=== PATIENT | female | born 1985 | race Two or more races ===

== ENCOUNTER 2023-03-14 13:05 | Emergency (ER) | payer OTHER ==
[~2023-03-14] VITALS: Ht 160 cm; Wt 87.5 kg
[2023-03-14] MEDS ORDERED: PRENA1 TRUE CO1 EACH (13:09)
[2023-03-14 15:11] LABS: HEMATOCRIT 44.9 % (36.0-45.00); HEMOGLOBIN 15.4 g/dL (12.0-15.00); MEAN CELL VOLUME 90.2 fL (80.00-100.00); MEAN CORPUSCULAR HGB CONC 34.4 g/dl (32.0-36.0); PLATELET COUNT 245 K/uL (150-450); RED BLOOD COUNT 4.97 M/uL (4.00-6.00); RED CELL DISTRIBUTION WIDTH 12.9 % (11.5-14.5)
[2023-03-14 15:29] LABS: URINE APPEARANCE Turbid; URINE BILIRRUBIN Negative (NEGATIVE); URINE BLOOD Negative; URINE COLOR Dark Yellow; URINE GLUCOSE Negative (NEGATIVE); URINE LEUKOCYTE Small; URINE NITRATE Negative; URINE PROTEIN Trace (NEGATIVE)
[2023-03-14 15:32] LABS: URINE EPITHELIAL CELLS 76.6 uL (0.0-38.8); URINE RBC 17.5 uL (0.0-20.8); URINE WBC 21.6 uL (0.0-23.2)
[2023-03-14 15:38] LABS: URINE BACTERIA > 9821.5 uL (0.0-1933)
[2023-03-14 15:53] LABS: CREATININE SERUM 0.63 mg/dL (0.55-1.02); GFR 106.33; POTASSIUM 3.49 mEq/L (3.5-5.1)
[2023-03-14] MEDS ORDERED: PEPCID AC20 MG PO (17:24)
[2023-03-14] MEDS ORDERED: INTESTINEX680 M1 PO (17:24)
[2023-03-14] MEDS ORDERED: ONDANSETRON HCL4 MG PO (17:24)
[2023-03-14] MEDS ORDERED: DUI500 PO (17:29)
== END 2023-03-14 17:59 ==
LOC: ER 13:05
PROVIDERS: Nurse Practitioner Family
DX: K52.9 Noninfective gastroenteritis and colitis, unspecified (principal); R11.10 Vomiting, unspecified; Z88.6 Allergy status to analgesic agent; Z91.040 Latex allergy status

== ENCOUNTER 2023-03-21 08:53 | Emergency (ER) | payer OTHER ==
[~2023-03-21] VITALS: Ht 160 cm; Wt 87.5 kg
[~2023-03-21 08:53] MED LIST: DUI500 PO; INTESTINEX680 M1 PO; ONDANSETRON HCL4 MG PO; PEPCID AC20 MG PO; PRENA1 TRUE CO1 EACH
[2023-03-21 10:08] LABS: HEMATOCRIT 41.9 % (36.0-45.00); HEMOGLOBIN 14.4 g/dL (12.0-15.00); MEAN CELL VOLUME 91.4 fL (80.00-100.00); MEAN CORPUSCULAR HEMOGLOBIN 31.4 pg (27.00-32.0); MEAN CORPUSCULAR HGB CONC 34.4 g/dl (32.0-36.0); PLATELET COUNT 274 K/uL (150-450); RED BLOOD COUNT 4.59 M/uL (4.00-6.00); RED CELL DISTRIBUTION WIDTH 12.6 % (11.5-14.5)
[2023-03-21 10:57] LABS: URINE APPEARANCE TURBID; URINE BILIRRUBIN NEGATIVE (NEGATIVE); URINE BLOOD LARGE; URINE COLOR DK YELLOW; URINE GLUCOSE NEGATIVE (NEGATIVE); URINE LEUKOCYTE NEGATIVE; URINE NITRATE NEGATIVE; URINE PROTEIN 30 (NEGATIVE); URINE UROBILINOGEN 0.2 E.U./dl
[2023-03-21 10:58] LABS: URINE BACTERIA MANY; URINE CRYSTALS NEGATIVE /HPF; URINE RBC LOADED /HPF; URINE WBC 0-2 /hpf
[2023-03-21 10:59] LABS: URINE MUCUS SCANT
[2023-03-21 11:09] LABS: ALBUMIN 3.3 gm/dL (3.4-5.0); BILIRUBIN TOTAL 0.24 mg/dL (0.3-1.2); CALCIUM 8.5 mg/dL (8.5-10.1); CREATININE SERUM 0.63 mg/dL (0.55-1.02); GFR 106.33; GLOBULINA 4.2 G/DL (2.4-3.5); POTASSIUM 4.11 mEq/L (3.5-5.1); TOTAL PROTEIN 7.5 gm/dL (6.4-8.2)
== END 2023-03-21 14:37 | disposition home or self-care (01) ==
LOC: ER 08:53
PROVIDERS: General Practice
DX: O20.9 Hemorrhage in early pregnancy, unspecified (principal); Z3A.08 8 weeks gestation of pregnancy; Z88.6 Allergy status to analgesic agent; Z91.040 Latex allergy status

== ENCOUNTER 2023-04-17 11:15 | Emergency (ER) | payer OTHER ==
[~2023-04-17] VITALS: Ht 160 cm; Wt 91.2 kg
[2023-04-17 12:42] LABS: HEMOGLOBIN 12.6 g/dL (12.0-15.00); MEAN CELL VOLUME 90.7 fL (80.00-100.00); MEAN CORPUSCULAR HEMOGLOBIN 31.9 pg (27.00-32.0); MEAN CORPUSCULAR HGB CONC 35.1 g/dl (32.0-36.0); PLATELET COUNT 236 K/uL (150-450); RED BLOOD COUNT 3.97 M/uL (4.00-6.00); RED CELL DISTRIBUTION WIDTH 12.6 % (11.5-14.5)
[2023-04-17 13:25] LABS: CREATININE SERUM 0.6 mg/dL (0.55-1.02); GFR 112.49; POTASSIUM 3.42 mEq/L (3.5-5.1)
[2023-04-17 13:28] LABS: PH,URINE 5.5 (5.0-8.0); URINE APPEARANCE Cloudy; URINE BILIRRUBIN Negative (NEGATIVE); URINE BLOOD Large; URINE COLOR Yellow; URINE GLUCOSE Negative (NEGATIVE); URINE LEUKOCYTE Trace; URINE NITRATE Negative; URINE PROTEIN Negative (NEGATIVE)
[2023-04-17 13:31] LABS: URINE BACTERIA 6486.2 uL (0.0-1933); URINE RBC 9.7 uL (0.0-20.8); URINE WBC 18.2 uL (0.0-23.2)
== END 2023-04-17 17:57 | disposition home or self-care (01) ==
LOC: ER 11:16
PROVIDERS: General Practice
DX: O20.8 Other hemorrhage in early pregnancy (principal); Z3A.12 12 weeks gestation of pregnancy; Z88.6 Allergy status to analgesic agent; Z91.040 Latex allergy status

== ENCOUNTER 2023-04-20 09:36 | Outpatient (CLI) | payer OTHER | END 2023-04-20 09:39 | disposition home or self-care (01) | LOC: PRENATAL 09:36 | PROVIDERS: ATTEND Obstetrics & Gynecology Maternal & Fetal Medicine | DX: O36.80X0 Pregnancy with inconclusive fetal viability, not applicable or unspecified (principal); Z36.82 Encounter for antenatal screening for nuchal translucency; Z36.9 Encounter for antenatal screening, unspecified; O09.529 Supervision of elderly multigravida, unspecified trimester; Z3A.12 12 weeks gestation of pregnancy ==

== ENCOUNTER → 2023-05-26 10:20 | Outpatient (CLI) | payer OTHER | END | disposition home or self-care (01) | LOC: PRENATAL 10:20 | PROVIDERS: ATTEND Obstetrics & Gynecology Maternal & Fetal Medicine | DX: Z76.1 Encounter for health supervision and care of foundling (principal) ==

== ENCOUNTER 2023-10-13 07:02 | Inpatient (IN) | payer OTHER ==
[~2023-10-13] VITALS: Ht 162.6 cm; Wt 122.5 kg
[2023-10-13] MEDS ORDERED: OXYTOCIN 500 ML IV SCH (07:15)
[2023-10-13] MEDS ORDERED: RINGERS SOLUTION,LACTATED 1,000 ML IV SCH (07:15)
[2023-10-13] MEDS ORDERED: ERYTHROMYCIN BASE 1 GM TUBE OP ONE ×3 (07:23→16:45)
[2023-10-13] MEDS ORDERED: CHLORHEXIDINE GLUCONATE 120 ML BOTTLE TOP ONE (07:23)
[2023-10-13] MEDS ORDERED: OXYTOCIN 20 UNITS/1000ML RL PIGGYBAG IV ONE (07:23)
[2023-10-13] MEDS ORDERED: LIDOCAINE HCL 1% 10ML VIAL ONE (07:24)
[2023-10-13 09:06] VITALS: BP 150/80
[2023-10-13 09:31] LABS: PH,URINE 6.5 (5.0-8.0); URINE APPEARANCE Clear; URINE BILIRRUBIN Negative (NEGATIVE); URINE BLOOD Negative; URINE COLOR Yellow; URINE GLUCOSE Negative (NEGATIVE); URINE KETONE Negative (NEGATIVE); URINE LEUKOCYTE Negative; URINE NITRATE Negative; URINE PROTEIN Trace (NEGATIVE)
[2023-10-13 09:37] LABS: URINE BACTERIA 309.9 uL (0.0-1933); URINE EPITHELIAL CELLS 36.1 uL (0.0-38.8); URINE RBC 63.3 uL (0.0-20.8); URINE WBC 20.5 uL (0.0-23.2)
[2023-10-13 09:50] LABS: HEMATOCRIT 34.5 % (36.0-45.00); HEMOGLOBIN 11.6 g/dL (12.0-15.00); MEAN CELL VOLUME 86.5 fL (80.00-100.00); MEAN CORPUSCULAR HGB CONC 33.5 g/dl (32.0-36.0); PLATELET COUNT 253 K/uL (150-450); RED BLOOD COUNT 3.99 M/uL (4.00-6.00); RED CELL DISTRIBUTION WIDTH 13.3 % (11.5-14.5)
[2023-10-13 10:19] LABS: INR < 0.93; PARTIAL THROMBOPLASTIN TIME 26.3 SECONDS (22.0-34.0); PROTHROMBIN TIME 9.9 SECONDS (9.0-11.5)
[2023-10-13 10:23] LABS: ALBUMIN 2.3 gm/dL (3.4-5.0); BILIRUBIN TOTAL 0.47 mg/dL (0.3-1.2); CALCIUM 8.6 mg/dL (8.5-10.1); CREATININE SERUM 0.67 mg/dL (0.55-1.02); GFR 99.04; GLOBULINA 3.9 G/DL (2.4-3.5); POTASSIUM 4.43 mEq/L (3.5-5.1); TOTAL PROTEIN 6.2 gm/dL (6.4-8.2)
[2023-10-13] MEDS ORDERED: MEPERIDINE HCL/PF 50 MG/ML VIAL IV ONE (11:15)
[2023-10-13] MEDS ORDERED: PROMETHAZINE HCL 25 MG/ML AMPUL IV ONE (11:15)
[2023-10-13 11:41] VITALS: BP 140/72
[2023-10-13] MEDS ORDERED: OXYTOCIN 10 UNITS/ML VIAL ONE (14:43)
[2023-10-13] MEDS ORDERED: CEFAZOLIN SODIUM 1,000 MG VIAL IV ONE (16:45)
[2023-10-13] MEDS ORDERED: PROMETHAZINE HCL 50 MG/ML AMPUL IM PRN (16:45)
[2023-10-13] MEDS ORDERED: MEPERIDINE HCL/PF 50 MG/ML VIAL IM PRN (16:45)
[2023-10-13] MEDS ORDERED: OXYTOCIN 10 UNITS/ML VIAL IV ONE (16:45)
[2023-10-13] MEDS ORDERED: MORPHINE SULFATE 4 MG/ML VIAL IV ONE ×2 (17:15→18:15)
[2023-10-13] MEDS ORDERED: CEFAZOLIN SODIUM 1,000 MG VIAL IV SCH (20:00)
[2023-10-13] MEDS ORDERED: PROMETHAZINE HCL 50 MG/ML AMPUL IM ONE (20:10)
[2023-10-13] MEDS ORDERED: CEFAZOLIN SODIUM 1,000 MG VIAL ONE (20:11)
[2023-10-13 22:24] VITALS: BP 148/85
[2023-10-14] VITALS: BP 141/80
[2023-10-14 03:14] LABS: HEMATOCRIT 33.9 % (36.0-45.00); HEMOGLOBIN 11.4 g/dL (12.0-15.00); MEAN CELL VOLUME 86.8 fL (80.00-100.00); MEAN CORPUSCULAR HEMOGLOBIN 29.3 pg (27.00-32.0); MEAN CORPUSCULAR HGB CONC 33.7 g/dl (32.0-36.0); PLATELET COUNT 219 K/uL (150-450); RED BLOOD COUNT 3.91 M/uL (4.00-6.00); RED CELL DISTRIBUTION WIDTH 13.1 % (11.5-14.5)
[2023-10-14] MEDS ORDERED: GUAIFENESIN 200 MG/10 ML BLIST.PACK PO SCH (06:00)
[2023-10-14] MEDS ORDERED: ACETAMINOPHEN 500 MG GEL..CAP PO PRN (06:30)
[2023-10-14] MEDS ORDERED: OxyCODONE HCL/APAP UD (PERCOCET) PO PRN (06:30)
[2023-10-14 08:00] VITALS: BP 145/85
[2023-10-14 16:08] VITALS: BP 150/80
[2023-10-15 02:05] VITALS: BP 140/88
[2023-10-15 09:00] VITALS: BP 143/83
[2023-10-15 17:00] VITALS: BP 143/83
[2023-10-16 01:42] VITALS: BP 142/88
[2023-10-16 09:57] VITALS: BP 138/89
== END 2023-10-16 17:38 | disposition home or self-care (01) | DRG 788 ==
LOC: LDR 07:02 → O/R 15:49 → OB/GYN 17:53
PROVIDERS: ADMIT Specialist; ATTEND Specialist
PROC: 4A1HXCZ Monitoring of Products of Conception, Cardiac Rate, External Approach (ICD-10-PCS; 2023-10-13)
PROC: 10D00Z1 Extraction of Products of Conception, Low, Open Approach (ICD-10-PCS; principal; 2023-10-13 17:15)
DX: O62.0 Primary inadequate contractions (principal); O62.2 Other uterine inertia; Z3A.37 37 weeks gestation of pregnancy; Z37.0 Single live birth; Z20.822 Contact with and (suspected) exposure to COVID-19

== ENCOUNTER 2023-10-20 01:19 | Emergency (ER) | payer OTHER ==
[~2023-10-20] VITALS: Ht 160 cm; Wt 122.5 kg
[2023-10-20] MEDS ORDERED: TUSSIN15 MG/5 M1 (01:40)
[2023-10-20] MEDS ORDERED: ZITHROMAX200 MG PO (01:40)
[2023-10-20] MEDS ORDERED: OxyCODONE HCL/APAP UD (PERCOCET) PO STA (02:39)
[2023-10-20] MEDS ORDERED: CEFTRIAXONE SODIUM 1,000 MG VIAL IV STA (02:39)
[2023-10-20] MEDS ORDERED: CEFTRIAXONE SODIUM 1,000 MG VIAL ONE (02:43)
[2023-10-20 03:44] LABS: PH,URINE 5.5 (5.0-8.0); URINE APPEARANCE Turbid; URINE BILIRRUBIN Negative (NEGATIVE); URINE BLOOD Large; URINE COLOR Orange; URINE GLUCOSE Negative (NEGATIVE); URINE KETONE Negative (NEGATIVE); URINE LEUKOCYTE Large; URINE NITRATE Negative
[2023-10-20 03:45] LABS: BILIRUBIN TOTAL 0.28 mg/dL (0.3-1.2); CALCIUM 8.2 mg/dL (8.5-10.1); CREATININE SERUM 0.55 mg/dL (0.55-1.02); GFR 124.37; POTASSIUM 3.86 mEq/L (3.5-5.1)
[2023-10-20 03:48] LABS: URINE EPITHELIAL CELLS 32.6 uL (0.0-38.8); URINE RBC 3059.6 uL (0.0-20.8); URINE WBC 3915.2 uL (0.0-23.2)
[2023-10-20 04:23] LABS: HEMATOCRIT 29.8 % (36.0-45.00); HEMOGLOBIN 10.2 g/dL (12.0-15.00); MEAN CELL VOLUME 85.3 fL (80.00-100.00); MEAN CORPUSCULAR HGB CONC 34.1 g/dl (32.0-36.0); PLATELET COUNT 331 K/uL (150-450); RED CELL DISTRIBUTION WIDTH 13.9 % (11.5-14.5)
[2023-10-20 04:36] LABS: INR 0.95; PARTIAL THROMBOPLASTIN TIME 27.5 SECONDS (22.0-34.0); PROTHROMBIN TIME 10.4 SECONDS (9.0-11.5)
[2023-10-20 04:45] LABS: URINE BACTERIA > 9821.5 uL (0.0-1933); URINE CAST 0.45 uL (0.0-1.40); URINE PROTEIN 100 (NEGATIVE)
== END 2023-10-20 09:22 | disposition home or self-care (01) ==
LOC: ER 01:20
PROVIDERS: General Practice
DX: O86.01 Infection of obstetric surgical wound, superficial incisional site (principal); Z88.6 Allergy status to analgesic agent; Z91.040 Latex allergy status; U07.1 COVID-19; N39.0 Urinary tract infection, site not specified; B95.2 Enterococcus as the cause of diseases classified elsewhere